=== PATIENT | female | born 1935 | race Caucasian/White ===

== ENCOUNTER 2016-08-23 16:40 | Inpatient (IN) | payer MEDICARE, BC ==
[~2016-08-23 16:40] MED LIST: ACTOS30 MG PO; ACTOS45 MG; ED K+1010 MEQ; GLYBURID-METFOR1 T; GLYBURIDE-MET1 UDTA; KLOR-CON-1010 MEQ PO; LOPRESSOR100 MG; METFORMIN HCL1000 MG PO; METOPROLOL TAR100 MG PO; NORCO 7.5/3251 TAB PO; OXYCONTIN10 M1 PO; POTASSIUM CHLO10 MEQ; PRINIVIL10 M1 PO; PRINZIDE 20/251 TAB; SENOKOT-S TABLE1 TAB PO; SIMVASTATIN10 MG PO; SYNTHROID50 MCG; SYNTHROID75 MCG PO; VYTORIN 10/20 T1 TAB
[2016-08-23 18:35] LABS: BASO % 0.3 % (0-2); EOS % 0.7 % (0-7); EOSINOPHIL ABSOLUTE COUNT 0.1 tho/cmm (0.0-0.7); HCT-HEMATOCRIT 35.4 % (34.0-49.0); HGB-HEMOGLOBIN 10.7 gm/dl (12.0-15.5); IMMATURE GRANULOCYTES ABSOLUTE 0.03 tho/cmm (0-0.03); IMMATURE GRANULOCYTES PERCENT 0.2 % (0-0.3); LYMPH % 13.6 % (20-45); LYMPH ABSOLUTE COUNT 1.9 tho/cmm (0.8-4.5); MCH (MEAN CORPUSCULAR HGB) 25.8 pg (28.0-32.0); MCHC MEAN CORPUSCULAR HGB CONC 30.2 % (32.0-36.0); MCV (MEAN CELL VOLUME) 85.3 fl (82.0-96.0); MEAN PLATELET VOLUME 10.5 cmc (9.4-12.4); MONOCYTE ABSOLUTE COUNT 1.2 tho/cmm (0.0-1.2); NEUTROPHIL ABSOLUTE COUNT 10.4 tho/cmm (1.6-8.0); NEUTROPHIL-AUTOMATED 10.4 tho/cmm (1.6-8.0); NEUTROPHILS % 76.2 % (40-80); PLATELET COUNT 241 tho/cmm (150-450); RED BLOOD COUNT 4.15 mil/cmm (4.00-5.20); WHITE BLOOD COUNT 13.7 tho/cmm (4.0-10.0)
[2016-08-23 18:43] LABS: INR 3.3 INR (0.9-1.1); PROTHROMBIN TIME 39.2 SECONDS (9.0-13.6)
[2016-08-23] MEDS ORDERED: FLONASE ALLERG9.9 ML (18:49)
[2016-08-23] MEDS ORDERED: LEVEMIR100 UNITS/ SC ×2 (18:49→18:51)
[2016-08-23] MEDS ORDERED: CATAPRES0.1 M1 PO (18:52)
[2016-08-23] MEDS ORDERED: LOPRESSOR100 M1 PO (18:54)
[2016-08-23 18:56] LABS: ALB/GLOB RATIO 0.7 (0.8-2.0); ALKALINE PHOSPHATASE 158 U/L (33-138); ALT/SGPT 45 U/L (12-78); ANION GAP 14 mmol/L (0-20); AST/SGOT 36 U/L (10-40); BLOOD UREA NITROGEN 21 mg/dl (6-24); CALCIUM 8.4 mg/dl (8.5-10.5); CARBON DIOXIDE-VENOUS 30 mmol/L (22-32); CHLORIDE 100 mmol/l (96-110); CREATININE 1.34 mg/dl (0.50-1.10); GLUCOSE 108 mg/dL (70-110); POTASSIUM 3.6 mmol/L (3.7-5.1); SODIUM 140 mmol/L (135-145); eGFR VALUE FOR BLACK 44 mL/Min
[2016-08-23] MEDS ORDERED: LASIX40 M1 PO (18:56)
[2016-08-23] MEDS ORDERED: NOVOLOG100 UNITS/ SC (18:56)
[2016-08-23] MEDS ORDERED: COUMADIN2 M1 PO (18:57)
[2016-08-24 00:27] LABS: URINE APPEARANCE CLOUDY; URINE COLOR YELLOW; URINE LEUKOCYTE ESTERASE POSITIVE (NEG); URINE PROTEIN POSITIVE (NEG)
[2016-08-24 00:28] LABS: URINE BILIRUBIN NEGATIVE (NEG); URINE BLOOD MODERATE (NEG); URINE GLUCOSE (UA) POSITIVE (NEG); URINE KETONE NEGATIVE (NEG); URINE NITRITE NEGATIVE (NEG)
[2016-08-24 02:44] LABS: URINE BACTERIA 3+; URINE EPITHELIAL CELLS 20-30 /[HPF] (0-10); URINE WBC 20-50 /[HPF] (0-5)
[2016-08-24 05:56] LABS: INR 3.1 INR (0.9-1.1); PROTHROMBIN TIME 37.5 SECONDS (9.0-13.6)
[2016-08-24 06:18] LABS: ANION GAP 11 mmol/L (0-20); BLOOD UREA NITROGEN 19 mg/dl (6-24); CALCIUM 8.3 mg/dl (8.5-10.5); CARBON DIOXIDE-VENOUS 34 mmol/L (22-32); CHLORIDE 99 mmol/l (96-110); CREATININE 1.33 mg/dl (0.50-1.10); POTASSIUM 3.1 mmol/L (3.7-5.1); SODIUM 141 mmol/L (135-145); eGFR VALUE FOR BLACK 44 mL/Min
[2016-08-24 06:22] LABS: GLUCOSE 65 mg/dL (70-110)
[2016-08-25 05:56] LABS: ANION GAP 11 mmol/L (0-20); BLOOD UREA NITROGEN 22 mg/dl (6-24); CALCIUM 7.9 mg/dl (8.5-10.5); CARBON DIOXIDE-VENOUS 33 mmol/L (22-32); CHLORIDE 99 mmol/l (96-110); CREATININE 1.51 mg/dl (0.50-1.10); GLUCOSE 75 mg/dL (70-110); POTASSIUM 3.1 mmol/L (3.7-5.1); SODIUM 140 mmol/L (135-145); eGFR VALUE FOR BLACK 38 mL/Min
[2016-08-25 06:26] LABS: PROTHROMBIN TIME 23.7 SECONDS (9.0-13.6)
[2016-08-25 13:35] LABS: URINE APPEARANCE CLEAR; URINE COLOR YELLOW
[2016-08-25 13:36] LABS: URINE BILIRUBIN NEGATIVE (NEG); URINE BLOOD NEGATIVE (NEG); URINE GLUCOSE (UA) NEGATIVE (NEG); URINE KETONE NEGATIVE (NEG); URINE LEUKOCYTE ESTERASE POSITIVE (NEG); URINE NITRITE NEGATIVE (NEG); URINE PROTEIN NEGATIVE (NEG); URINE SPECIFIC GRAVITY 1.015 (1.003-1.030)
[2016-08-25 13:42] LABS: URINE BACTERIA 1+; URINE EPITHELIAL CELLS 0-2 /[HPF] (0-10); URINE RBC 0 /[HPF] (0-5)
[2016-08-26 06:33] LABS: INR 1.6 INR (0.9-1.1)
[2016-08-26 06:41] LABS: ANION GAP 11 mmol/L (0-20); BLOOD UREA NITROGEN 25 mg/dl (6-24); CALCIUM 8.2 mg/dl (8.5-10.5); CARBON DIOXIDE-VENOUS 32 mmol/L (22-32); CHLORIDE 100 mmol/l (96-110); POTASSIUM 3.2 mmol/L (3.7-5.1); SODIUM 140 mmol/L (135-145); eGFR VALUE FOR BLACK 38 mL/Min
[2016-08-26 06:58] LABS: PROTHROMBIN TIME 18.7 SECONDS (9.0-13.6)
[2016-08-26 07:00] LABS: GLUCOSE 69 mg/dL (70-110)
[2016-08-27 05:53] LABS: INR 1.6 INR (0.9-1.1); PROTHROMBIN TIME 18.5 SECONDS (9.0-13.6)
[2016-08-27 06:01] LABS: ANION GAP 10 mmol/L (0-20); BLOOD UREA NITROGEN 28 mg/dl (6-24); CALCIUM 8.4 mg/dl (8.5-10.5); CARBON DIOXIDE-VENOUS 31 mmol/L (22-32); CHLORIDE 104 mmol/l (96-110); CREATININE 1.63 mg/dl (0.50-1.10); GLUCOSE 78 mg/dL (70-110); POTASSIUM 3.3 mmol/L (3.7-5.1); SODIUM 142 mmol/L (135-145); eGFR VALUE FOR BLACK 34 mL/Min
[2016-08-27] MEDS ORDERED: HYDRALAZINE HCL25 M1 PO (12:07)
[2016-08-27] MEDS ORDERED: POTASSIUM CHLO20 ME3 PO (12:08)
== END 2016-08-27 13:45 | DRG 291 ==
LOC: CAR1 16:40
PROVIDERS: Internal Medicine Interventional Cardiology; ADMIT Specialist
PROC: 05H633Z Insertion of Infusion Device into Left Subclavian Vein, Percutaneous Approach (ICD-10-PCS; principal; 2016-08-23)
DX: I13.0 Hypertensive heart and chronic kidney disease with heart failure and stage 1 through stage 4 chronic kidney disease, or unspecified chronic kidney disease (principal); I50.33 Acute on chronic diastolic (congestive) heart failure; N17.9 Acute kidney failure, unspecified; R78.81 Bacteremia; E11.22 Type 2 diabetes mellitus with diabetic chronic kidney disease; E11.65 Type 2 diabetes mellitus with hyperglycemia; N18.3 Chronic kidney disease, stage 3 (moderate); I48.2 Chronic atrial fibrillation; E87.6 Hypokalemia; R09.02 Hypoxemia; Z86.73 Personal history of transient ischemic attack (TIA), and cerebral infarction without residual deficits; E78.00 Pure hypercholesterolemia, unspecified; E03.9 Hypothyroidism, unspecified; D64.9 Anemia, unspecified; I27.2 Other secondary pulmonary hypertension; Z79.4 Long term (current) use of insulin; Z79.01 Long term (current) use of anticoagulants; Z88.1 Allergy status to other antibiotic agents; Z88.8 Allergy status to other drugs, medicaments and biological substances; J30.9 Allergic rhinitis, unspecified; E66.9 Obesity, unspecified; Z68.34 Body mass index [BMI] 34.0-34.9, adult; E78.5 Hyperlipidemia, unspecified
CPT/HCPCS: C1751; G0378; G0379; G8978-GP-CI; G8978-GP-CJ; G8979-GP-CI; G8980-GP-CJ; G8987-GO-CJ; G8988-GO-CI; G8989-GO-CJ; J1815; J1940